=== PATIENT | female | born 1980 ===

== ENCOUNTER 2022-11-16 15:09 | Outpatient (CLI) | payer MEDICAID, SELFPAY | END 2022-11-16 15:10 | disposition home or self-care (01) | LOC: AMB 11-21 16:26 | PROVIDERS: PCP Internal Medicine; Visit Provider Family Medicine | DX: R07.89 Other chest pain (principal) | CPT/HCPCS: A0998 ==

== ENCOUNTER 2022-11-16 15:50 | Emergency (ER) | payer MEDICAID, SELFPAY ==
[2022-11-16 15:58] VITALS: BP 130/77; PULSE 84; TEMP 36.6; O2SAT 99; BMI 21.1
--- NOTE | 2022-11-16 17:52 | CRLHL7_ITS ---
For Patients: As a result of the Century Cures Act, medical imaging exams and procedure reports are released immediately into your electronic medical record. You may view this report before your referring provider. If you have questions, please contact your health care provider. INDICATION: Chest pain. TECHNIQUE: Chest 1 views. COMPARISON: None. FINDINGS: Cardiovascular and mediastinum: Heart size and vasculature are normal in caliber and appearance. Lungs and pleural spaces: Lungs are clear. No sign of infiltrate or mass. Blunting of the right costophrenic angle. No pneumothorax. Bones and soft tissues: No significant findings. IMPRESSION: Blunting of the right costophrenic angle which could suggest small pleural effusion. Dictated by Chucho Farmer MD @ 11/16/2022 6:29:01 PM (Electronically Signed)
[2022-11-16 17:54] VITALS: O2SAT 99
--- NOTE | 2022-11-16 17:55 | ED.GENADULT ---
HPI - General Adult General Chief complaint: Chest Pain Stated complaint: Blurred vision, nausea Time Seen by Provider: 11/16/22 17:30 Source: patient Mode of arrival: ambulatory Limitations: no limitations History of Present Illness HPI narrative: 42-year-old female coming in today with multiple complaints. She states that she started feeling unwell on Saturday with chest discomfort. Chest discomfort would come and go, not associated with physical activity. Then in the last couple days she complains that her entire body feels very heavy like someone is hanging bricks off of her entire body. She is not coughing. She had an episode of nausea earlier in the week and that has since resolved. She denies any diarrhea or urinary symptoms such as increased frequency urgency or dysuria. She then had an episode today where she felt very heavy again and both arms started tingling and she felt acute pain in the palm of the left hand. She shows me exactly where in the palm hurts and she pushes on it and says ouch. Patient tells me that she is certain that something serious is going on. When asked her if she has a history of anxiety she becomes very upset with me, tells me that she does have anxiety but she has not had any panic attacks for few years now. She tells me that she knows exactly what a panic attack feels like and she knows what anxiety feels like in this is absolutely not it. She also tells me that her systolic blood pressure was 130 today in this alone tells her that something very serious is going on because her blood pressure is never and ?I mean never? greater than 120. She denies any recent traveling or long periods of immobility. She does smoke 10-15 cigarettes per day. She denies any recent surgery. Her review of systems is positive for headache, blurry vision that comes and goes but gets better when she blinks, chest pain, abdominal pain, back pain, bilateral arm pain, nausea. [facility] Social History Smoking Status: Current every day smoker What tobacco products do you use: cigarettes Smoking packs per day: 0.5 Smoking cigarettes per day: 10.0 Years smoked: 30 Smoking pack-years: 15.00 Second hand tobacco smoke exposure: No How often do you have a drink containing alcohol: 2-4 times a month How many standard drinks containing alcohol do you have on a typical day: 3 or 4 How often do you have six or more drinks on one occasion: Monthly AUDIT-C Alcohol total score: 5 Non-prescribed substance use: denies use service: No Exam Narrative: Exam Narrative: Well-nourished well-developed patient in no acute distress. Alert and oriented x3. She is cooperative and answers questions appropriately. Speech is slightly pressured. Voice sounds normal. She does not appear ill or toxic. When I enter the room she is scrolling on her phone. HEENT: Normocephalic atraumatic. Pupils are equally round reactive to light. Extraocular muscles are intact. Conjunctivae are moist without any icterus noted. Moist mucous membranes. Posterior pharynx is normal. Neck is soft without any lymphadenopathy or thyromegaly. No masses are appreciated. Cardiovascular: Heart is regular rate and rhythm S1 and S2 are present without any murmurs. Lungs: Clear to auscultation bilaterally no wheezes rhonchi or rales are appreciated. Patient takes deep breaths without any discomfort. Abdomen: Soft and nontender nondistended with normal bowel sounds. No guarding or rebound. No masses or organomegaly appreciated. Extremities: Bilateral lower extremities are without edema. Normal DP and PT pulses. Skin: Well perfused without any obvious rashes. Const: Vital Signs, click to edit/add: Vital Signs - 24 hr 11/16/22 15:58 11/16/22 17:54 Temperature 97.8 F Pulse Rate [Pulse Oximeter] 84 Blood Pressure [Ri ght Forearm] 130/77 Pulse Oximetry 99 99 Oxygen Delivery Me thod Room Air Course Course Hospital Course: Lab work entirely normal. EKG, read by me, shows normal sinus rhythm with a pulse of 85. Chest x-ray, read by me, does not show any acute infiltrates. She has minimal costophrenic blunting on the right. Vital Signs Vital signs: Initial Vital Signs Temperature 97.8 F 11/16/22 15:58 Temperature Source Temporal Artery Scan 11/16/22 15:58 Pulse Rate 84 11/16/22 15:58 Pulse Rhythm 11/16/22 15:58 Blood Pressure 130/77 11/16/22 15:58 Blood Pressure Mean 94 11/16/22 15:58 Blood Pressure Position Sitting 11/16/22 15:58 Pulse Oximetry 99 11/16/22 15:58 Oxygen Delivery Method 11/16/22 15:58 Vital Signs Temperature 97.8 F 11/16/22 15:58 Pulse Rate 84 11/16/22 15:58 Blood Pressure 130/77 11/16/22 15:58 Pulse Oximetry 99 11/16/22 15:58 Oxygen Delivery Method 11/16/22 15:58 Temperature 97.8 F 11/16/22 15:58 Pulse Rate 84 11/16/22 15:58 Blood Pressure 130/77 11/16/22 15:58 Pulse Oximetry 99 11/16/22 17:54 Oxygen Delivery Method 11/16/22 15:58 Medical Decision Making MDM Narrative Medical decision making narrative: Not feeling well. Recommend follow-up with her primary care provider as no life-threatening pathology was found today. Lab Data Lab results reviewed: Yes I reviewed the patient's lab results Labs: Lab Results 11/16/22 11/16/22 11/16/22 Range/Units 17:53 17:53 18:21 WBC 6.32 (4.50-11.00) K/uL RBC 4.12 (4.00-5.20) m/uL Hgb 13.4 (12.0-16.0) gm/dL Hct 39.4 (33.0-51.0) % MCV 96 (80-100) fL MCH 33 (26-34) pg MCHC 34 (32-36) gm/dL RDW Coeff of [place] 12.0 (11.5-15.5) % Plt Count 261 (140-440) K/uL Neut % (Auto) 60.1 (42.0-72.0) % Lymph % (Auto) 31.3 (20-44) % [place] % (Auto) 7.1 (0.0-11.0) % Eos % (Auto) 0.9 (0.0-7.0) % Baso % (Auto) 0.6 (0.0-3.0) % Neut # (Auto) 3.79 (1.7-7.0) K/uL Lymph # (Auto) 1.98 (0.90-2.90) K/uL [place] # (Auto) 0.40 (0.00-0.90) K/UL Eos # (Auto) 0.06 (0.00-0.50) K/uL Baso # (Auto) 0.04 (0.00-0.30) K/uL ESR (2-20) mm/hr D-Dimer Quant (PE/DVT) (0.00-0.50) ug/ml Sodium (135-149) mmol/L Potassium (3.6-5.1) mmol/L Chloride (96-114) mmol/L Carbon Dioxide (20-32) mmol/L BUN (5-24) mg/dL Creatinine (0.5-1.5) mg/dL Estimated Creat Clear Estimated GFR ml/min Glucose (60-115) mg/dL Lactate (0.5-1.9) mmol/L Calcium (8.4-10.6) mg/dL Total Bilirubin (0.1-1.5) mg/dL Direct Bilirubin (0.0-0.5) mg/dL AST (12-35) U/L ALT (4-35) U/L Alkaline Phosphatase (40-150) U/L Troponin I (0.01-0.04) ng/mL C-Reactive Protein (0.5-1.0) mg/dL Total Protein (6.0-8.3) g/dL Albumin (3.3-5.0) g/dL Lipase (23-300) U/L HCG, Qual Negative (Negative) Urine Color Yellow (Yellow) Urine Appearance Clear (Clear) Urine pH 6.0 (5.0-8.5) Ur Specific [place] <= 1.005 (1.000-1.030) Urine Protein Negative (Negative) Urine Glucose (UA) Negative (Negative) Urine Ketones Negative (Negative) Urine Blood Trace-intact A (Negative) Urine Nitrite Negative (Negative) Urine Bilirubin Negative (Negative) Urine Urobilinogen 0.2 (0.2-1.0) Ur Leukocyte Esterase Negative (Negative) Urine RBC 0-2 (0-2) Urine WBC 0-2 (0-5) Ur Squamous Epith Cells None (None-Few) Urine Bacteria None (None) SARS-CoV-2 (PCR) Negative SARS-CoV-2 (Negative) Influenza Type A (PCR) Negative PCR FLU A (Negative) Influenza Type B (PCR) Negative PCR FLU B (Negative) RSV (PCR) Negative PCR RSV (Negative) 0111/16/22 11/16/22 Range/Units 18:21 18:21 18:21 WBC (4.50-11.00) K/uL RBC (4.00-5.20) m/uL Hgb (12.0-16.0) gm/dL Hct (33.0-51.0) % MCV (80-100) fL MCH (26-34) pg MCHC (32-36) gm/dL RDW Coeff of [place]ker (11.5-15.5) % Plt Count (140-440) K/uL Neut % (Auto) (42.0-72.0) % Lymph % (Auto) (20-44) % [place] % (Auto) (0.0-11.0) % Eos % (Auto) (0.0-7.0) % Baso % (Auto) (0.0-3.0) % Neut # (Auto) (1.7-7.0) K/uL Lymph # (Auto) (0.90-2.90) K/uL [place] # (Auto) (0.00-0.90) K/UL Eos # (Auto) (0.00-0.50) K/uL Baso # (Auto) (0.00-0.30) K/uL ESR 12 (2-20) mm/hr D-Dimer Quant (PE/DVT) < 0.27 (0.00-0.50) ug/ml Sodium 136 (135-149) mmol/L Potassium 3.9 (3.6-5.1) mmol/L Chloride 109 (96-114) mmol/L Carbon Dioxide 21 (20-32) mmol/L BUN 9 (5-24) mg/dL Creatinine 0.6 (0.5-1.5) mg/dL Estimated Creat Clear 115.67 Estimated GFR 113 ml/min Glucose 80 (60-115) mg/dL Lactate (0.5-1.9) mmol/L Calcium 9.4 (8.4-10.6) mg/dL Total Bilirubin 0.7 (0.1-1.5) mg/dL Direct Bilirubin 0.2 (0.0-0.5) mg/dL AST 32 (12-35) U/L ALT 28 (4-35) U/L Alkaline Phosphatase 80 (40-150) U/L Troponin I < 0.01 L (0.01-0.04) ng/mL C-Reactive Protein < 0.5 L (0.5-1.0) mg/dL Total Protein 7.0 (6.0-8.3) g/dL Albumin 4.4 (3.3-5.0) g/dL Lipase 91 (23-300) U/L HCG, Qual (Negative) Urine Color (Yellow) Urine Appearance (Clear) Urine pH (5.0-8.5) Ur Specific [place] (1.000-1.030) Urine Protein (Negative) Urine Glucose (UA) (Negative) Urine Ketones (Negative) Urine Blood (Negative) Urine Nitrite (Negative) Urine Bilirubin (Negative) Urine Urobilinogen (0.2-1.0) Ur Leukocyte Esterase (Negative) Urine RBC (0-2) Urine WBC (0-5) Ur Squamous Epith Cells (None-Few) Urine Bacteria (None) SARS-CoV-2 (PCR) (Negative) Influenza Type A (PCR) (Negative) Influenza Type B (PCR) (Negative) RSV (PCR) (Negative) 11/16/22 Range/Units 18:21 WBC (4.50-11.00) K/uL RBC (4.00-5.20) m/uL Hgb (12.0-16.0) gm/dL Hct (33.0-51.0) % MCV (80-100) fL MCH (26-34) pg MCHC (32-36) gm/dL RDW Coeff of [place] (11.5-15.5) % Plt Count (140-440) K/uL Neut % (Auto) (42.0-72.0) % Lymph % (Auto) (20-44) % [place] % (Auto) (0.0-11.0) % Eos % (Auto) (0.0-7.0) % Baso % (Auto) (0.0-3.0) % Neut # (Auto) (1.7-7.0) K/uL Lymph # (Auto) (0.90-2.90) K/uL [place] # (Auto) (0.00-0.90) K/UL Eos # (Auto) (0.00-0.50) K/uL Baso # (Auto) (0.00-0.30) K/uL ESR (2-20) mm/hr D-Dimer Quant (PE/DVT) (0.00-0.50) ug/ml Sodium (135-149) mmol/L Potassium (3.6-5.1) mmol/L Chloride (96-114) mmol/L Carbon Dioxide (20-32) mmol/L BUN (5-24) mg/dL Creatinine (0.5-1.5) mg/dL Estimated Creat Clear Estimated GFR ml/min Glucose (60-115) mg/dL Lactate 0.5 (0.5-1.9) mmol/L Calcium (8.4-10.6) mg/dL Total Bilirubin (0.1-1.5) mg/dL Direct Bilirubin (0.0-0.5) mg/dL AST (12-35) U/L ALT (4-35) U/L Alkaline Phosphatase (40-150) U/L Troponin I (0.01-0.04) ng/mL C-Reactive Protein (0.5-1.0) mg/dL Total Protein (6.0-8.3) g/dL Albumin (3.3-5.0) g/dL Lipase (23-300) U/L HCG, Qual (Negative) Urine Color (Yellow) Urine Appearance (Clear) Urine pH (5.0-8.5) Ur Specific [place] (1.000-1.030) Urine Protein (Negative) Urine Glucose (UA) (Negative) Urine Ketones (Negative) Urine Blood (Negative) Urine Nitrite (Negative) Urine Bilirubin (Negative) Urine Urobilinogen (0.2-1.0) Ur Leukocyte Esterase (Negative) Urine RBC (0-2) Urine WBC (0-5) Ur Squamous Epith Cells (None-Few) Urine Bacteria (None) SARS-CoV-2 (PCR) (Negative) Influenza Type A (PCR) (Negative) Influenza Type B (PCR) (Negative) RSV (PCR) (Negative) Imaging Data Chest x-ray: Attestation: I have reviewed the pertinent imaging results. ECG Data Attestation: I personally reviewed and interpreted this ECG as follows: Discharge Plan Discharge Clinical Impression: Fatigue, Back pain, Atypical chest pain, Abdominal pain Patient Disposition: Home, Self-Care Condition: Stable Additional Instructions: Your workup was entirely normal today. There is no evidence of infection or inflammation. Your heart workup was normal. Recommend you follow-up with your primary care provider if you continue to not feel well. Follow Up/Referrals: Provider,Not a Local [Referring] - Stand Alone Forms: Open Me Info Instructions
[2022-11-16 18:20] LABS: Appearance Urine Clear (Clear); Bilirubin Urine Negative (Negative); Blood Urine Trace-intact (Negative); Color Urine Yellow (Yellow); Glucose Urine Negative (Negative); Ketones Urine Negative (Negative); Leukocyte Esterase Urine Negative (Negative); Nitrite Urine Negative (Negative); Protein Urine Negative (Negative); Specific Gravity Urine <= 1.005 (1.000-1.030); Urobilinogen Urine 0.2 (0.2-1.0)
[2022-11-16 18:30] LABS: Lactate* 0.5 mmol/L (0.5-1.9)
[2022-11-16 18:35] LABS: Basophils Absolute Auto 0.04 K/uL (0.00-0.30); Basophils Percent Auto 0.6 % (0.0-3.0); Eosinophils Absolute Auto 0.06 K/uL (0.00-0.50); Eosinophils Percent Auto 0.9 % (0.0-7.0); Hematocrit 39.4 % (33.0-51.0); Hemoglobin* 13.4 gm/dL (12.0-16.0); Lymphocytes Absolute Auto 1.98 K/uL (0.90-2.90); Lymphocytes Percent Auto 31.3 % (20-44); Mean Corpuscular HGB Conc 34 gm/dL (32-36); Mean Corpuscular Hemoglobin 33 pg (26-34); Mean Corpuscular Volume 96 fL (80-100); Monocytes Percent Auto 7.1 % (0.0-11.0); Neutrophils Absolute Auto 3.79 K/uL (1.7-7.0); Neutrophils Percent Auto 60.1 % (42.0-72.0); Platelet Count* 261 K/uL (140-440); Red Blood Count 4.12 m/uL (4.00-5.20); White Blood Count* 6.32 K/uL (4.50-11.00)
[2022-11-16 18:43] LABS: Slide Review Reflex No
[2022-11-16 18:48] LABS: HCG Qualitative* Negative (Negative)
[2022-11-16 18:49] LABS: Albumin* 4.4 g/dL (3.3-5.0); Chloride* 109 mmol/L (96-114)
[2022-11-16 18:50] LABS: Potassium* 3.9 mmol/L (3.6-5.1); Sodium* 136 mmol/L (135-149)
[2022-11-16 18:52] LABS: Creatinine* 0.6 mg/dL (0.5-1.5); Est. Creatinine Clearance* 115.67; Estimated Glomerular Filt Rate 113 ml/min
[2022-11-16 18:53] LABS: RBC Urine 0-2 (0-2); WBC Urine 0-2 (0-5)
[2022-11-16 18:53] LABS: Alanine Aminotransferase* 28 U/L (4-35); Alkaline Phosphatase* 80 U/L (40-150); Aspartate Amino Transferase* 32 U/L (12-35); Bilirubin Direct* 0.2 mg/dL (0.0-0.5); Bilirubin Total* 0.7 mg/dL (0.1-1.5); Blood Urea Nitrogen* 9 mg/dL (5-24); Calcium* 9.4 mg/dL (8.4-10.6); Carbon Dioxide* 21 mmol/L (20-32); Glucose* 80 mg/dL (60-115); Lipase* 91 U/L (23-300)
[2022-11-16 19:00] LABS: C Reactive Protein* < 0.5 mg/dL (0.5-1.0); D Dimer Quantitative* < 0.27 ug/ml (0.00-0.50)
[2022-11-16 19:16] LABS: Troponin I* < 0.01 ng/mL (0.01-0.04)
[2022-11-16 19:26] LABS: Erythrocyte SedimentationRate* 12 mm/hr (2-20)
[2022-11-16 19:34] LABS: PCR FLU A Negative PCR FLU A (Negative); PCR FLU B Negative PCR FLU B (Negative); PCR RSV Negative PCR RSV (Negative)
[2022-11-16 19:38] LABS: SARS PCR* Negative SARS-CoV-2 (Negative)
== END 2022-11-16 20:03 | disposition home or self-care (01) ==
PROVIDERS: Emergency Provider Family Medicine; PCP Internal Medicine
DX: R07.89 Other chest pain (principal); M54.9 Dorsalgia, unspecified; R53.83 Other fatigue
CPT/HCPCS: 36415; 71045; 80048; 80076; 81001; 83605; 83690; 84484; 84703; 85025; 85379; 85651; 86140; 87086; 87502; 87634; 87635; 93005; 94761; 99284; 99285

== ENCOUNTER 2023-05-27 15:48 | Outpatient (CLI) | payer MEDICARE, MEDICAID, SELFPAY | END 2023-05-27 15:49 | disposition home or self-care (01) | PROVIDERS: PCP Internal Medicine; Visit Provider Internal Medicine | DX: E03.9 Hypothyroidism, unspecified (principal); R53.83 Other fatigue; Z13.6 Encounter for screening for cardiovascular disorders | CPT/HCPCS: 80048; 80061; 84443 ==

== ENCOUNTER 2023-07-10 15:43 | Outpatient (CLI) | payer MEDICARE, MEDICAID, SELFPAY | END 2023-07-10 15:44 | disposition home or self-care (01) | LOC: NFLDREF 15:44 | PROVIDERS: PCP Internal Medicine; Visit Provider Internal Medicine Nephrology | DX: Z00.00 Encounter for general adult medical examination without abnormal findings (principal); Q60.0 Renal agenesis, unilateral; E03.9 Hypothyroidism, unspecified | CPT/HCPCS: 87086 ==

== ENCOUNTER 2023-07-18 14:30 | Outpatient (CLI) | payer MEDICARE, MEDICAID, SELFPAY ==
--- NOTE | 2023-07-18 15:00 | CRLHL7_ITS ---
For Patients: As a result of the Century Cures Act, medical imaging exams and procedure reports are released immediately into your electronic medical record. You may view this report before your referring provider. If you have questions, please contact your health care provider. CLINICAL HISTORY: History of left nephrectomy evaluate right kidney. TECHNIQUE: Vincent scale and color Doppler images were acquired of the kidneys and urinary bladder. FINDINGS: Left nephrectomy. Right kidney measures 12.7 centimeters renal cortex measures 1.5 centimeters. Mild prominence of the right renal pelvis. No solid mass. Urinary bladder unremarkable. Postvoid urinary bladder volume measures 2 mL. IMPRESSION: 1. Mild prominence of the right renal pelvis. Dictated by Melina Schofield MD @ 07/19/2023 7:07:01 AM (Electronically Signed)
== END 2023-07-18 14:31 | disposition home or self-care (01) ==
LOC: US 14:30
PROVIDERS: PCP Internal Medicine; Visit Provider Internal Medicine Nephrology
DX: Z90.5 Acquired absence of kidney (principal)
CPT/HCPCS: 76775

== ENCOUNTER 2023-08-06 13:30 | Outpatient (CLI) | payer MEDICARE, MEDICAID, SELFPAY | END 2023-08-06 13:31 | disposition home or self-care (01) | LOC: NFLDREF 08-07 07:51 | PROVIDERS: PCP Internal Medicine; Referring Provider Internal Medicine; Visit Provider Internal Medicine | DX: R30.0 Dysuria (principal) | CPT/HCPCS: 87086 ==

== ENCOUNTER 2023-11-01 14:06 | Outpatient (CLI) | payer MEDICARE, MEDICAID, SELFPAY | END 2023-11-01 14:07 | disposition home or self-care (01) | LOC: NFLDREF 11-03 23:39 | PROVIDERS: PCP Internal Medicine; Referring Provider Internal Medicine; Visit Provider Physician Assistant | DX: R35.0 Frequency of micturition (principal); N39.0 Urinary tract infection, site not specified | CPT/HCPCS: 87086; 87186 ==

== ENCOUNTER 2023-11-21 12:50 | Outpatient (CLI) | payer MEDICARE, SELFPAY ==
--- NOTE | 2023-11-21 13:00 | CRLHL7_ITS ---
For Patients: As a result of the Century Cures Act, medical imaging exams and procedure reports are released immediately into your electronic medical record. You may view this report before your referring provider. If you have questions, please contact your health care provider. DXA BONE MINERAL DENSITY STUDY Reason for exam: Osteoporosis. Current height (in): 66.5. Weight (lb): 138. Menopause age: N/A Ethnicity: White. 1. Have you had a previous hip or vertebral fracture? No. 2. Have you had any fractures during your adult life which did not result from significant trauma (e.g., auto accident)? Yes. 3. Did either of your parents have a hip fracture? No. 4. Do you smoke? Yes. 5. Have you ever taken Glucocorticoids? No. 6. Do you have rheumatoid arthritis? No. 7. Do you have secondary osteoporosis? No. 8. Do you drink 3 or more alcoholic drinks per day? No. 9. Are you being treated for osteoporosis? Yes. 10. Have you ever taken any of the following medications: Actonel, Evista, Fosamax, Miacalcin, Reclast, Boniva, Forteo, HRT (i.e., estrogen/hormone therapy), Protelos, Prolia, Vitamin D, Calcium, other ??? please specify. ANSWER: Yes, vitamin D and calcium. 11. Do you have any of the following medical conditions: Anorexia or bulimia, asthma or emphysema, end stage renal disease, hyperparathyroidism, any seizure disorders, cancer, inflammatory bowel diseases, hysterectomy, other ??? please specify. ANSWER: Yes, hypothyroidism. 12. What was your maximum height (inches)? 66.75. 13. Do you perform weight bearing exercise regularly? No. 14. Do you regularly consume dairy products? Yes. 15. Do you drink caffeinated beverages? Yes. If female: 16. At what age did your period start? 12. 17. Are you premenopausal? Yes. 18. How many full-term pregnancies have you had? 2. 19. Have you ever missed your period for more than 6 months in a row (not including or menopause)? No. TECHNIQUE: Bone mineral density study was performed using the [employer]. FINDINGS: The results of the study expressed as bone mineral density (BMD) are as follows: Lumbar spine L1 to L4: BMD: 0.806 g/cm2. Z-score: -1.7. Neck Left: BMD: 0.643 g/cm2. Z-score: -1.4. Right: BMD: 0.666 g/cm2. Z-score: -1.2. Total Left: BMD: 0.817 g/cm2. Z-score: -0.7. Right: BMD: 0.814 g/cm2. Z-score: -0.8. IMPRESSION: Normal findings with no increased fracture risk identified. The Z-score is within the expected range for age (Z-score above -2.0). (The World Health Organization [WHO] criteria do not apply to this patient). This patient does not fit the criteria to use the database of postmenopausal women. That database is useful for perimenopausal and postmenopausal women, and men 50 years old and older. Therefore, the T-scores are not useful to evaluate this patient and only the Z-scores are used. JOSIAH ROCHA M.D. Transcribed: 7:05 p.m. [email or web address]/Dictated by: Josiah Rocha MD @ 11/21/2023 1:41:00 PM (Electronically Signed)
== END 2023-11-21 12:51 | disposition home or self-care (01) ==
LOC: RAD 12:54
PROVIDERS: PCP Internal Medicine; Visit Provider Internal Medicine
DX: M81.0 Age-related osteoporosis without current pathological fracture (principal)
CPT/HCPCS: 77080

== ENCOUNTER 2024-04-15 14:35 | Outpatient (CLI) | payer MEDICARE, MEDICAID, SELFPAY | END 2024-04-15 14:36 | disposition home or self-care (01) | LOC: NFLDREF 05-01 15:30 | PROVIDERS: PCP Internal Medicine; Referring Provider Internal Medicine; Visit Provider Internal Medicine | DX: E03.9 Hypothyroidism, unspecified (principal); E78.5 Hyperlipidemia, unspecified; R07.9 Chest pain, unspecified | CPT/HCPCS: 80053; 80061; 84439; 84443 ==

== ENCOUNTER 2024-04-24 13:30 | Outpatient (CLI) | payer MEDICARE, MEDICAID, SELFPAY ==
--- NOTE | 2024-04-24 13:45 | MR_ITS ---
[address] [address] Phone:?[phone] Fax:?[phone] Referring Physician Information: Ascencion Brown M.D. [id number] [facility] [address] Phone:?[phone] Fax:?[phone] Patient:Julianna Alexis D.O.B:?1980 Sex:?Female Phone:?[phone] [facility] MRN:?[id number] Exam Date:?04/24/2024 EXAM: MRI EXAMINATION OF THE LEFT KNEE CLINICAL INFORMATION: Left knee pain. No specific injury. No history of surgery to this area. Evaluate lateral meniscal tear. TECHNICAL INFORMATION: Coronal PD and STIR. Axial PD and T2 fat saturation. Sagittal PD and PD fat saturation images acquired. INTERPRETATION: Bones: There is an approximate 2.1 x 1.8 cm segment of poorly defined, irregular linear signal involving the medial tibia just distal to the tibial plateau articulating surface. There is a marked appearance of surrounding bone marrow edema signal. Additional marrow edema signal without fracture involves the periphery of the medial femoral condyle and epicondyle. No other evidence for a fracture. Localized minimal subchondral cystic change involves the lateral trochlear groove. No other abnormal bone marrow edema pattern is identified. Ligaments and tendons: The medial collateral ligament is intact, without acute sprain or tear. The iliotibial band, fibular collateral ligament, biceps femoris tendon and popliteus tendon all are intact. The anterior cruciate ligament is intact without acute sprain or tear. The posterior cruciate ligament is intact. Extensor Mechanism: The patellar and quadriceps tendons are intact. There are mild changes of patellar tendinopathy. The medial and lateral retinacula are intact. Knee Joint: There is no knee joint effusion. There is a tiny popliteal cyst. There is no discrete loose body seen within the joint. Medial Compartment: There is no evidence for discrete medial meniscal tear. No displaced flap fragment or parameniscal cyst. There is no focal chondral defect. No other significant changes of chondromalacia. Lateral Compartment: There is no evidence for discrete lateral meniscal tear. No displaced flap fragment or parameniscal cyst. There is no focal chondral defect. No other significant changes of chondromalacia. Patellofemoral articulation: There is a 2 to 3 mm focus of chondral delamination and subchondral cystic change towards the superior surface of the lateral trochlear groove. No other significant chondromalacia. CONCLUSION: 1. There is a 2.1 x 1.8 cm segment of poorly defined, irregular linear signal involving the medial tibia situated just distal to the articulating surface. Marked surrounding bone marrow edema signal. Appearance in keeping with developing stress/insufficiency fracture. 2. Nonspecific marrow edema signal is identified along the periphery of the medial femoral condyle and epicondyle, without evidence for a fracture. 3. No evidence for a meniscal tear. The cruciate ligaments are intact. 4. There is a tiny focus of chondral delamination and subchondral cystic change of the lateral trochlear groove. 5. Mild patellar tendinopathy. [facility] Electronically signed on 04/24/2024 5:35:00 PM by Juan José Teixeira M.D.
== END 2024-04-24 13:31 | disposition home or self-care (01) ==
LOC: MRI 13:30
PROVIDERS: PCP Internal Medicine; Visit Provider Orthopaedic Surgery
DX: M25.562 Pain in left knee (principal)
CPT/HCPCS: 73721

== ENCOUNTER 2024-05-14 12:27 | Emergency (ER) | payer MEDICARE, MEDICAID, SELFPAY ==
--- NOTE | 2024-05-14 12:56 | ED_ITS ---
HPI - General Adult General Time Seen by Provider: 13:05 Date Seen: 05/14/24 Chief complaint: Urogenital Problems, Female Stated complaint: Possible vaginal infection, UTI symptoms Time Seen by Provider: 05/14/24 12:45 Source: patient, RN notes reviewed and old records reviewed Mode of arrival: ambulatory Limitations: no limitations History of Present Illness HPI narrative: This 43-year-old female is coming in with concern of possible urinary tract infection verses vaginal issue. She states that she will get urinary tract infections, bacterial vaginosis and yeast vaginitis which all can present similarly for her. She is leaning towards UTI as she is having more urinary frequency, dysuria, bladder irritability. She is not sexually active, no concern for any sexually transmitted diseases. She is not noting any vaginal discharge but states she frequently does not have that. She does have a solitary kidney, had 1 of her kidneys removed at age 1. She has seen Nephrology, that note was reviewed. She notes no nausea vomiting, she does have some suprapubic discomfort. No fevers or chills. Related Data Home Medications ?Medication ?Instructions ?Recorded ?Confirmed albuterol sulfate 90 mcg/actuation inhalation 05/27/23 05/04/24 aerosol inhaler (Ventolin HFA) calcium citrate 500 mg PO BID 05/27/23 05/04/24 chlorpheniramine maleate 4 mg 8 mg PO BID 05/27/23 05/04/24 tablet (Aller-Chlor) dextroamphetamine-amphetamine ER 1 cap PO QAM 05/27/23 05/04/24 10 mg 24hr capsule,extend release (Adderall XR) loratadine-pseudoephedrine ER 10 1 tab PO QDAY 05/27/23 05/04/24 mg-240 mg tablet,extended [id number] (Claritin-D 24 Hour) mirtazapine 15 mg tablet 15 mg PO QPM 05/27/23 05/04/24 Previous Rx's ?Medication ?Instructions ?Recorded Levoxyl 137 mcg tablet 137 mcg PO DAILY Hypothyroidism 07/10/23 (levothyroxine) #90 tabs cholecalciferol (vitamin D3) 50 50 mcg PO DAILY Fatigue #90 caps 08/19/23 mcg (2,000 unit) capsule calcium carbonate (Tums) 200 mg PO TID GERD #90 tabs 09/18/23 zinc glycinate 30 mg capsule 30 mg PO QDAY Skin changes #90 caps 09/18/23 simvastatin 20 mg tablet (Zocor) 20 mg PO QPM Hyperlipidemia #90 02/14/24 tabs fluconazole 150 mg tablet 150 mg PO Q3D 2 doses #2 tabs 03/11/24 nystatin 100,000 unit/mL oral 100,000 unit PO QID #200 mL 04/15/24 suspension cephalexin 500 mg tablet 500 mg PO TID #15 tabs 05/14/24 Allergies Allergy/AdvReac Type Severity Reaction Status Date / Time Sulfa (Sulfonamide Allergy Intermediate Anaphylaxis Verified 05/04/24 15:27 Antibiotics) Review of Systems Narrative: As per HPI. [facility] Medical History Thrush ?B37.0 - Candidal stomatitis (ICD-10) Chest pain ?R07.9 - Chest pain, unspecified (ICD-10) Fatigue ?R53.83 - Other fatigue (ICD-10) GERD (gastroesophageal reflux disease) ?K21.9 - Gastro-esophageal reflux disease without esophagitis (ICD-10) Skin change ?R23.9 - Unspecified skin changes (ICD-10) Osteoporosis ?M81.0 - Age-related osteoporosis without current pathological fracture (ICD- 10) Hyperlipidemia ?E78.5 - Hyperlipidemia, unspecified (ICD-10) History of abnormal cervical Pap smear ?Z87.42 - Personal history of other diseases of the female genital tract (ICD-10) Surgical History History of section (2005) ?Z98.891 - History of uterine scar from previous surgery (ICD-10) History of colposcopy (2002) ?Z98.890 - Other specified postprocedural states (ICD-10) History of nephrectomy (1979) ?Z90.5 - Acquired absence of kidney (ICD-10) Family History Mother High blood pressure High cholesterol Maternal Grandmother High blood pressure Thyroid disease Diabetes Stroke Coronary artery disease Father Alcohol dependence Liver cancer Hepatitis Social History What is your current living situation?: I presently have a place to live Problems where you live: lack of heat Problems where you live details: malfunctioning heat In the past 12 months, utilities in danger of being shut off: no In past 12 months, lack of transportation kept you from medical appts, meetings, work, or getting things needed for daily living: no In the past 12 mos, have been you worried that your food would run out before you had money to buy more?: declined to answer In the past 12 mos, the food you bought just didn't last and you didn't have money to buy more?: never true Smoking Status: Current every day smoker What tobacco products do you use: cigarettes Smoking packs per day: 0.5 Smoking cigarettes per day: 10.0 Years smoked: 30 Smoking pack-years: 15.00 Second hand tobacco smoke exposure: No How often do you have a drink containing alcohol: 2-4 times a month How many standard drinks containing alcohol do you have on a typical day: 3 or 4 How often do you have six or more drinks on one occasion: Monthly AUDIT-C Alcohol total score: 5 Non-prescribed substance use: denies use How often does anyone, including family, friends and others, physically hurt you : never How often does anyone, including family, friends and others, insult or talk down to you: never How often does anyone, including family, friends and others, threaten you with harm: never How often does anyone, including family, friends and others, scream or curse at you: never Little interest or pleasure in doing things: not at all Feeling down, depressed, or hopeless: not at all service: No Exam Const: Vital Signs, click to edit/add: Vital Signs - 24 hr 05/14/24 13:02 Temperature 97.4 F L Pulse Rate [Right Pulse Oximeter] 84 Respiratory Rate 18 Blood Pressure [Ri ght Upper Arm] 127/89 Pulse Oximetry 94 Oxygen Delivery Me thod Room Air This is a very pleasant 43-year-old female that is alert, interactive, no apparent distress. They say traumatic, conjugate gaze, sclera clear, speaking complete sentences. Lungs are clear, good air entry, no wheezing or crackles. No CVA tenderness. CV regular rate and rhythm, no murmur, normal S1-S2, no S3- S4. Abdomen with mild suprapubic tenderness but no rebound or guarding, no organomegaly noted. No abdominal masses noted. No inguinal masses or adenopathy. Pelvic exam deferred at this time. Documenting provider has reviewed patient's vital signs: yes Course Course ED Course: We will obtain urinalysis to rule out urinary tract infection, urine culture will be done. Patient will do self collection for the vaginal panel to look for vaginitis issues. Reevaluation(s) Time of Reevaluation #1: 14:36 Reevaluation #1: Reviewed with patient that the urinalysis is not definitively showing UTI, the vaginitis panel is negative. She really feels like this is urinary tract infection, would like antibiotics. Her urine specific gravity was dilute, that could confound the urinalysis. Given she has a solitary kidney, did agree to treat with antibiotics. She will follow up with her primary care provider if this is not improving her symptoms or she has further concerns. Vital Signs Vital signs: Initial Vital Signs Temperature 97.4 F L 05/14/24 13:02 Temperature Source Temporal Artery Scan 05/14/24 13:02 Pulse Rate 84 05/14/24 13:02 Respiratory Rate 18 05/14/24 13:02 Blood Pressure 127/89 05/14/24 13:02 Blood Pressure Mean 101 05/14/24 13:02 Blood Pressure Position Sitting 05/14/24 13:02 Pulse Oximetry 94 05/14/24 13:02 Oxygen Delivery Method Room Air 05/14/24 13:02 Vital Signs Temperature 97.4 F L 05/14/24 13:02 Pulse Rate 84 05/14/24 13:02 Respiratory Rate 18 05/14/24 13:02 Blood Pressure 127/89 05/14/24 13:02 Pulse Oximetry 94 05/14/24 13:02 Oxygen Delivery Method Room Air 05/14/24 13:02 Temperature 97.4 F L 05/14/24 13:02 Pulse Rate 84 05/14/24 13:02 Respiratory Rate 18 05/14/24 13:02 Blood Pressure 127/89 05/14/24 13:02 Pulse Oximetry 94 05/14/24 13:02 Oxygen Delivery Method Room Air 05/14/24 13:02 Medical Decision Making Lab Data Lab results reviewed: Yes I reviewed the patient's lab results Labs: Lab Results 05/14/24 Range/Units 13:20 Urine Color Yellow (Yellow) Urine Appearance Clear (Clear) Urine pH 7.0 (5.0-8.5) Ur Specific [place] 1.010 (1.000-1.030) Urine Protein Negative (Negative) Urine Glucose (UA) Negative (Negative) Urine Ketones Negative (Negative) Urine Blood Negative (Negative) Urine Nitrite Negative (Negative) Urine Bilirubin Negative (Negative) Urine Urobilinogen 0.2 (0.2-1.0) Ur Leukocyte Esterase Trace A (Negative) Urine RBC 0-2 (0-2) Urine WBC 0-2 (0-5) Ur Squamous Epith Cells None (None-Few) Urine Bacteria None (None) Vaginal Bacterial Vaginosis Negative (Negative) Vaginal Misty species NOT DETECTED (No Detected) Vag C. glabrata/krusei NOT DETECTED (No Detected) Vag T. vaginalis NOT DETECTED (No Detected) Discharge Plan Discharge Clinical Impression: Dysuria Patient Disposition: Home, Self-Care Condition: Stable Instructions: Urinary Tract Infection in Women (ED), Dysuria (ED) Additional Instructions: Can start antibiotic and take as prescribed. Drink plenty of fluids. If your symptoms are not improving or if there are further concerns, do need to be re- evaluated. The urinalysis is not definitively showing infection, we are still treating you given you have a solitary kidney and her symptoms are consistent for UTI for you. If the urine culture does come back negative, antibiotics certainly could be stopped. Activity Level: Activity as Tolerated Prescriptions: New cephalexin 500 mg tablet 500 mg PO TID Qty: 15 0RF No Action Claritin-D 24 Hour 10-240 mg tablet extended release 24 hr 1 tab PO QDAY chlorpheniramine maleate [Aller-Chlor] 4 mg tablet 8 mg PO BID calcium citrate 250 mg calcium tablet 500 mg PO BID mirtazapine 15 mg tablet 15 mg PO QPM dextroamphetamine-amphetamine [Adderall XR] 10 mg capsule,extended release 24hr 1 cap PO QAM albuterol sulfate [Ventolin HFA] 90 mcg/actuation HFA aerosol inhaler inhalation nystatin 100,000 unit/mL suspension 100,000 unit PO QID Qty: 200 0RF Rx Instructions: swish and spit fluconazole 150 mg tablet 150 mg PO Q3D Qty: 2 0RF Rx Instructions: may repeat second dose 72 hrs after first dose if symptoms persist levothyroxine [Levoxyl] 137 mcg tablet 137 mcg PO DAILY Qty: 90 3RF cholecalciferol (vitamin D3) 50 mcg (2,000 unit) capsule 50 mcg PO DAILY Qty: 90 3RF zinc glycinate 30 mg capsule 30 mg PO QDAY Qty: 90 3RF calcium carbonate [Tums] 200 mg calcium (500 mg) tablet,chewable 200 mg PO TID Qty: 90 3RF simvastatin [Zocor] 20 mg tablet 20 mg PO QPM Qty: 90 3RF Follow Up/Referrals: Victor Hugo Lopez MD [Primary Care Provider] - Stand Alone Forms: [facility] Info Instructions
[2024-05-14 13:02] VITALS: BP 127/89; PULSE 84; RESP 18; TEMP 36.3; O2SAT 94; BMI 21.1
[2024-05-14 13:30] LABS: Appearance Urine Clear (Clear); Bilirubin Urine Negative (Negative); Blood Urine Negative (Negative); Color Urine Yellow (Yellow); Glucose Urine Negative (Negative); Ketones Urine Negative (Negative); Leukocyte Esterase Urine Trace (Negative); Nitrite Urine Negative (Negative); Protein Urine Negative (Negative); Urobilinogen Urine 0.2 (0.2-1.0)
[2024-05-14 13:38] LABS: RBC Urine 0-2 (0-2); WBC Urine 0-2 (0-5)
[2024-05-14 14:29] LABS: Bacterial Vaginosis* Negative (Negative); Candida glab/krus NOT DETECTED (No Detected); Candida species NOT DETECTED (No Detected); Trichomonas vaginalis NOT DETECTED (No Detected)
== END 2024-05-14 14:51 | disposition home or self-care (01) ==
PROVIDERS: Emergency Provider Family Medicine; PCP Internal Medicine
DX: R30.0 Dysuria (principal)
CPT/HCPCS: 81001; 81513; 87086; 87481; 87661; 99283

== ENCOUNTER 2024-05-19 12:38 | Outpatient (CLI) | payer MEDICARE, MEDICAID, SELFPAY ==
[2024-05-19 14:17] VITALS: BP 113/74; PULSE 79
--- NOTE | 2024-05-19 14:26 | W.PM.STED ---
Stress Test Note Date Date Seen: 05/19/24 Date of test: 05/19/24 Providers Referring provider: Victor Hugo Lopez Primary care provider: Victor Hugo Lopez Stress test physician: Lawanda Garza Stress Test Note Stress test ordered: Stress Echo Indication for test: Chest pain Stress test medicine: None Results discussion: Resting EKG: Sinus rhythm, 71 beats per minute. Flipped T-waves lead V1, otherwise no concerning change. Resting blood pressure: 117/80 Stress test: Patient was consented on stress test ordered and agree to proceed. Patient exercised on the treadmill following standard Santosh protocol. She was able to exercise to 11 minutes 2 seconds, stopping as she had reached her goal heart rate and reaching her exercise capacity. This was equivalent to 12.1 Mets. She had maximum heart rate of 168 beats per minute which was 112% of a calculated target heart rate of 149. She had a maximal blood pressure of 160/88 to giving her a rate pressure product of 22,560. There was no ischemic change or EKG changes in indicative of ischemia. Patient did state just after 2 minutes or so into recovery that she was feeling some chest pain behind the left breast, subsequently radiated to in between her breasts and was substernal. She reported that she has had this moving type chest pain for quite some time. There were no EKG changes indicating any ischemia. Patient was advised on going to the ER to have troponins checked and follow to assure no ischemia. She declined this evaluation. Did review with her that ischemic could not definitively be ruled out. Impression: Subjectively positive, objectively negative EKG portion of this stress test. Follow up suggested: We will await echo images to couple this report for full formal diagnostic. She will get her reports from Dr. Lopez. She does planned follow-up with him. Did review with her that she should consider ED evaluation to evaluate troponins but she has declined at this point. Did caution her that if her symptoms are not resolving, or worsening, associated with any increase with activity or respiratory change, highly recommended ED evaluation per
== END 2024-05-19 12:39 | disposition home or self-care (01) ==
LOC: STRESS 12:38
PROVIDERS: PCP Internal Medicine; Visit Provider Family Medicine
DX: R07.9 Chest pain, unspecified (principal)
CPT/HCPCS: 93016; 93325; 93351

== ENCOUNTER 2024-07-15 18:44 | Outpatient (CLI) | payer MEDICARE, MEDICAID, SELFPAY | END 2024-07-15 18:45 | disposition home or self-care (01) | LOC: AMB 07-18 09:19 | PROVIDERS: PCP Internal Medicine; Visit Provider Emergency Medicine Emergency Medical Services | DX: R07.89 Other chest pain (principal) | CPT/HCPCS: A0998 ==

== ENCOUNTER 2024-07-28 12:17 | Outpatient (CLI) | payer MEDICARE, MEDICAID, SELFPAY | END 2024-07-28 12:18 | disposition home or self-care (01) | LOC: NFLDREF 12:19 | PROVIDERS: PCP Internal Medicine; Visit Provider Internal Medicine | DX: E03.9 Hypothyroidism, unspecified (principal); R53.83 Other fatigue; E78.5 Hyperlipidemia, unspecified; R07.9 Chest pain, unspecified | CPT/HCPCS: 80069; 82043; 82570; 84439; 84443 ==

== ENCOUNTER 2024-09-25 13:51 | Outpatient (CLI) | payer MEDICARE, MEDICAID, SELFPAY ==
--- NOTE | 2024-09-25 14:00 | CRLHL7_ITS ---
For Patients: As a result of the Century Cures Act, medical imaging exams and procedure reports are released immediately into your electronic medical record. You may view this report before your referring provider. If you have questions, please contact your health care provider. INDICATION: Chest pain TECHNIQUE: CT chest with 95 mL Isovue 370 COMPARISON: None. FINDINGS: Lungs and pleura: Irregular opacities in the peripheral right middle lobe and lower lobe on the right could be areas of atelectasis or possibly infectious/inflammatory No pulmonary emboli. Heart and vasculature: Heart size is normal. Thoracic aorta and pulmonary artery are normal in caliber. Lymph nodes/mediastinum: No mediastinal, hilar, or axillary adenopathy. Chest wall: No masses. Upper abdomen: No significant findings. Bones: Unremarkable for age. IMPRESSION: 1. No pulmonary emboli. Some minimal irregular opacities in the peripheral right middle lobe could be areas of atelectasis/infectious inflammatory. Please note that all CT scans at this facility use dose modulation, iterative reconstruction, and/or weight-based dosing when appropriate to reduce radiation dose to as low as reasonably achievable. Dictated by Melina Schofield MD @ 09/28/2024 4:56:36 AM (Electronically Signed)
[2024-09-25 14:41] LABS: Creatinine* 0.6 mg/dL (0.5-1.5); Estimated Glomerular Filt Rate 112 ml/min
== END 2024-09-25 13:52 | disposition home or self-care (01) ==
PROVIDERS: PCP Internal Medicine; Visit Provider Internal Medicine
DX: R07.9 Chest pain, unspecified (principal)
CPT/HCPCS: 36415; 71275; 82565; Q9967

== ENCOUNTER 2025-02-03 13:41 | Outpatient (CLI) | payer MEDICARE, MEDICAID, SELFPAY ==
--- NOTE | 2025-02-03 14:00 | CRLHL7_ITS ---
For Patients: As a result of the Century Cures Act, medical imaging exams and procedure reports are released immediately into your electronic medical record. You may view this report before your referring provider. If you have questions, please contact your health care provider. INDICATION: Abnormality seen on recent chest x-ray. TECHNIQUE: CT chest without contrast. COMPARISON: X-ray chest November 16, 2024 CT chest September 2024 FINDINGS: Lungs and pleura: Redemonstration of linear atelectasis/chronic scarring in the right upper and middle lobe. Xray evident asymmetric nodular opacity at the right lung bases likely related to scarring. No suspicious lung nodule. No pleural effusion or pneumothorax. The central airways are patent. Heart and vasculature: Cardiac size is within normal limits. Thoracic aorta and pulmonary artery are of normal caliber. No pericardial effusion. Lymph nodes/mediastinum: No mediastinal, hilar, or axillary adenopathy. Chest wall: No masses. Upper abdomen: No significant findings. Bones: Thoracic vertebral body height and alignment is maintained. No concerning bony lesion. IMPRESSION: Chronic scarring/atelectasis at the right upper and middle lobe. No concerning lung nodule. Please note that all CT scans at this facility use dose modulation, iterative reconstruction, and/or weight-based dosing when appropriate to reduce radiation dose to as low as reasonably achievable. Dictated by Reid Schuler MD @ 02/04/2025 2:25:31 PM (Electronically Signed)
[2025-02-03 14:14] LABS: Creatinine* 0.7 mg/dL (0.5-1.5); Estimated Glomerular Filt Rate 108 ml/min
== END 2025-02-03 13:42 | disposition home or self-care (01) ==
PROVIDERS: PCP Internal Medicine; Visit Provider Internal Medicine
DX: R94.8 Abnormal results of function studies of other organs and systems (principal); J98.11 Atelectasis
CPT/HCPCS: 36415; 71250; 82565

== ENCOUNTER 2025-04-08 15:00 | Outpatient (RCR) | payer MEDICARE, MEDICAID, SELFPAY | END 2025-08-06 23:59 | disposition home or self-care (01) | PROVIDERS: PCP Internal Medicine; Visit Provider Orthopaedic Surgery | DX: M25.562 Pain in left knee (principal); M54.50 Low back pain, unspecified; M53.2X6 Spinal instabilities, lumbar region; Z51.89 Encounter for other specified aftercare | CPT/HCPCS: 97110; 97112; 97161 ==

== ENCOUNTER 2025-10-13 15:47 | Outpatient (CLI) | payer MEDICARE, SELFPAY ==
[2025-10-13 20:31] LABS: Bacterial Vaginosis* Negative (Negative); Candida glab/krus NOT DETECTED (No Detected)
[2025-10-16 02:41] LABS: HPV Source Cervix
[2025-10-20 09:29] LABS: Pap Test Digital Imaging Done
== END 2025-10-13 15:48 | disposition home or self-care (01) ==
PROVIDERS: PCP Internal Medicine; Visit Provider Registered Nurse
DX: Z12.4 Encounter for screening for malignant neoplasm of cervix (principal); N89.8 Other specified noninflammatory disorders of vagina; Z11.3 Encounter for screening for infections with a predominantly sexual mode of transmission; R63.5 Abnormal weight gain
CPT/HCPCS: 80053; 81513; 84439; 84443; 86703; 86780; 86803; 87340; 87481; 87624; 87625; 87661; 88141; 88142; 88175